=== PATIENT | female | born 1965 | race African-American/Black ===

== ENCOUNTER 2016-11-22 16:36 | Emergency (ER) | payer OTHER ==
[~2016-11-22] VITALS: Ht 165.1 cm; Wt 65.0 kg
[2016-11-22 16:44] VITALS: Ht 165.1 cm; Wt 65.0 kg
[2016-11-22] MEDS ORDERED: LIDOCAINE 1% (MDV) 20 ML INJ SC ONE (18:00)
[2016-11-22 18:40] VITALS: BP 120/70; PULSE 65; RESP 18; TEMP 98.4
--- NOTE | 2016-11-22 20:22 | ERD ---
ER Documentation Chief Complaint Date/Time DATE: 11/22/16 TIME: 20:20 Chief Complaint RT SIDE FACE LAC S/P FALL IN BATH TUB , NO K/O HPI This patient is a 51-year-old female presenting to the emergency department for laceration to her face underneath her right eye. This happened at 3:30 PM today. The patient states she was getting out of her bath when she slipped on her knees causing her face to drop approximately 1 foot into the metal faucet. The patient denies loss of consciousness, dizziness, headache, vomiting, or other injuries or symptoms currently. The patient's tetanus shot is up-to-date. ROS All systems reviewed and are negative except as per history of present illness. Allergies Allergies: Coded Allergies: No Known Allergy (Unverified , 11/22/16) PMhx/Soc Medical and Surgical Hx: pt denies Medical Hx History of Surgery: Yes (appendix) Hx Alcohol Use: No Hx Substance Use: No Hx Tobacco Use: No Smoking Status: Never smoker Physical Exam Vitals Vital Signs Date Time Temp Pulse Resp B/P Pulse Ox O2 Delivery O2 Flow Rate FiO2 11/22/16 18:40 98.4 65 18 120/70 100 Room Air 11/22/16 16:44 98.4 68 18 124/63 98 Physical Exam Const: Well-appearing, nontoxic female in no acute distress. Head: There is a 1 cm laceration just inferior to the right eye without active bleeding or sign of foreign body. Eyes: Normal Conjunctiva ENT: Normal External Ears, Nose and Mouth. Neck: Full range of motion..~ No meningismus. Resp: Clear to auscultation bilaterally Cardio: Regular rate and rhythm, no murmurs Abd: Soft, non tender, non distended. Normal bowel sounds Skin: No petechiae or rashes Back: No midline or flank tenderness Ext: No cyanosis, or edema Neur: Awake and alert Psych: Normal Mood and Affect Results 24 hrs Current Medications Medications (Trade) Dose Ordered Sig/Mio Route PRN Reason Start Time Stop Time Status Last Admin Dose Admin Lidocaine (Xylocaine 1% (Mdv) 20 ml) 20 ml ONCE ONCE SC 11/22/16 18:00 11/22/16 18:01 DC Procedures/MDM Laceration Repair by me: Anesthesia: 1% lidocaine locally 51-year-old female presents for a laceration just inferior to the right eye. Location: Inferior to the right eye Tendon/Joint/Nerves: No injury Foreign body: None detected after copious irrigation and exploration Technique: 2 Simple Interrupted Sutures Complexity: No subcutaneous sutures/mucosal repair/ edge excision Post Closure Length: 1 cm Patient's bleeding was easily controlled in the department and there is no indication of anemia. No evidence of compartment syndrome, neurologic injury, vascular injury, open joint, tendon laceration, or foreign body. Patient is appropriate for outpatient follow up. 48 hour wound check. Scar minimization instructions given. Departure Diagnosis: Primary Impression: Laceration Condition: Fair Patient Instructions: Laceration, Face (Suture Or Tape) Referrals: [facility] YOU HAVE RECEIVED A MEDICAL SCREENING EXAM AND THE RESULTS INDICATE THAT YOU DO NOT HAVE A CONDITION THAT REQUIRES URGENT TREATMENT IN THE EMERGENCY DEPARTMENT. FURTHER EVALUATION AND TREATMENT OF YOUR CONDITION CAN WAIT UNTIL YOU ARE SEEN IN YOUR DOCTORS OFFICE WITHIN THE NEXT 1-2 DAYS. IT IS YOUR RESPONSIBILITY TO MAKE AN APPOINTMENT FOR FOLOW-UP CARE. IF YOU HAVE A PRIMARY DOCTOR --you should call your primary doctor and schedule an appointment IF YOU DO NOT HAVE A PRIMARY DOCTOR YOU CAN CALL OUR PHYSICIAN REFERRAL HOTLINE AT IF YOU CAN NOT AFFORD TO SEE A PHYSICIAN YOU CAN CHOSE FROM THE FOLLOWING [facility] [address] [facility]. [facility] [address] [facility] [address] [facility]. [facility] [address] [facility]. [facility] [address] [facility] [facility]. [address] Additional Instructions: Return in 48 hours for wound recheck. Return in 5-7 days for suture removal. Follow up with your PCP within the next 1-3 days for a repeat evaluation and a possible referral to a specialist, if required. Return the the emergency department immediately if symptoms worsen or change. If you have any questions regarding medications, ask your pharmacist or us before you leave. If any adverse reactions, occur while taking your medications, discontinue the treatment and return to the emergency department immediately. If any new or worsening symptoms, uncontrolled fevers, or other unexplained symptoms occur, return to the emergency department immediately. Take your medications as directed, and complete the entire course of treatment. LEOLA MCINTYRE PA-C November 22, 2016 20:22
== END 2016-11-22 18:36 | disposition home or self-care (01) ==
LOC: FTE 16:36
DX: S01.111A Laceration without foreign body of right eyelid and periocular area, initial encounter (principal); W18.2XXA Fall in (into) shower or empty bathtub, initial encounter; Y92.9 Unspecified place or not applicable
CPT/HCPCS: 12011; Z7502; Z7610

== ENCOUNTER 2016-11-24 08:01 | Emergency (ER) | payer OTHER ==
[~2016-11-24] VITALS: Ht 162.6 cm; Wt 66.0 kg
[2016-11-24 08:07] VITALS: Ht 162.6 cm; Wt 66.0 kg
--- NOTE | 2016-11-24 08:46 | ERD ---
ER Documentation Chief Complaint Date/Time DATE: 11/24/16 TIME: 08:36 Chief Complaint wound recheck on right side of face HPI Patient is a 51-year-old female with no past medical history who presents to the ED with a laceration wound check under her right eye. She states that she fell in the bathtub 2 days ago. Denies passing out or losing consciousness. Denies fever or chills. Denies headache or dizziness. Denies vomiting. Patient has been using Neosporin without difficulty. She has no complaints today. ROS All systems reviewed and are negative except as per history of present illness. Allergies Allergies: Coded Allergies: No Known Allergy (Unverified , 11/22/16) PMhx/Soc History of Surgery: Yes (appendix) Anesthesia Reaction: No Hx Neurological Disorder: No Hx Respiratory Disorders: No Hx Cardiac Disorders: No Hx Psychiatric Problems: No Hx Miscellaneous Medical Probl: No Hx Alcohol Use: No Hx Substance Use: No Hx Tobacco Use: No FmHx Family History: No coronary disease, No diabetes, No other Physical Exam Vitals Vital Signs Date Time Temp Pulse Resp B/P Pulse Ox O2 Delivery O2 Flow Rate FiO2 11/24/16 08:07 98.1 88 18 112/67 97 Physical Exam GENERAL: Well-developed, well-nourished female. Appears in no acute distress. HEAD: Normocephalic, atraumatic. EYES: Pupils are equally reactive bilaterally. EOMs grossly intact. No conjunctival erythema. 2 sutures underneath the right eye. No drainage no erythema or swelling. Slight ecchymosis. No deformities. ENT: Moist mucous membranes. No uvula deviation. No kissing tonsils. No exudates. NECK: Supple. No lymphadenopathy or thyromegaly. No meningismus. negative kernig. negative brudinski. LUNG: Clear to auscultation bilaterally. No rhonchi, wheezing, rales or coarse breath sounds. HEART: Regular rate and rhythm. No murmurs, rubs or gallops. Extremities: Equal pulses bilaterally. No peripheral clubbing, cyanosis or edema. No unilateral leg swelling. NEUROLOGIC: Alert and oriented. Moving all four extremities. 5/5 strength in all extremities. Normal speech. Steady gait. Cranial nerves II through XII intact. SKIN: Normal color. Warm and dry. No rashes or lesions. Capillary refill < 2 seconds Procedures/MDM ER COURSE: I kept the patient and/or family informed of laboratory and diagnostic imaging results throughout the emergency room course. MEDICAL DECISION MAKING: This is a 51-year-old female who presents with a wound check on a laceration underneath her right eye 2 days ago. Vital signs were reviewed. Patient is afebrile. Patient is not hypoxic. Patient is not toxic or ill-appearing. Wound shows no evidence of infection, foreign body, neurologic injury, vascular injury , open joint or tendon laceration. Patient appropriate for outpatient follow up. Low suspicion for necrotizing fasciitis, SJS, toxic epidermal necrolysis, Kawasaki, erythema multiforme, gangrene, scarlet fever, meningococcemia, sepsis, anaphylaxis, sepsis, deep space infection, or foreign body. DISCHARGE: At this time, patient is stable for discharge and outpatient management with no new complaints during the ER course. Patient was sent home with instructions to return in 5 days for removal of sutures. Patient will be discharged home with instructions to recheck for new or worsening symptoms such as fever, nausea, weakness, LOC and to follow up with primary care in the next 1-2 days. Patient was advised to return to the ER for any new or worsening symptoms. Plan was discussed and patient and/or family understands and agrees. Home instructions were given. Departure Diagnosis: Primary Impression: Encounter for wound re-check Condition: Stable Patient Instructions: Wound Check, Lac F/U (No Infection) Additional Instructions: Call your primary care doctor TOMORROW for an appointment during the next 1-2 days.See the doctor sooner or return here if your condition worsens before your appointment time. BOB CHISHOLM PA-C Nov 24, 2016 08:40
== END 2016-11-24 09:02 | disposition home or self-care (01) ==
LOC: FTE 08:01
DX: Z48.01 Encounter for change or removal of surgical wound dressing (principal)
CPT/HCPCS: 99281

== ENCOUNTER 2016-11-28 10:50 | Emergency (ER) | payer OTHER ==
[~2016-11-28] VITALS: Ht 165.1 cm; Wt 66.0 kg
[2016-11-28 10:52] VITALS: Ht 165.1 cm; Wt 66.0 kg
[2016-11-28] MEDS ORDERED: [UNRECOGNIZED DRUG - CODE] TP (11:09)
--- NOTE | 2016-12-01 21:52 | ERA ---
ER Documentation Chief Complaint Date/Time DATE: 12/01/16 TIME: 21:52 Chief Complaint SUTURE REMOVED FROM UNDER RIGHT EYE HPI This is a 51-year-old female who presents for suture removal. Patient had 2 sutures placed on her cheek on November 22. Patient denies fever, discharge or other signs of infection. Patient has no other complaints at this time. Describes no complications. ROS All systems reviewed and are negative except as per history of present illness. Medications Home Meds Active Scripts Allantoin/Onion/Peg's/Water (Mederma Gel) 50 Gm Gel..gm., 50 GM TP DAILY, #1 BOTTLE Prov:JENN VELAZQUEZ PA-C 11/28/16 Allergies Allergies: Coded Allergies: No Known Allergy (Unverified , 11/22/16) PMhx/Soc Medical and Surgical Hx: pt denies Medical Hx, pt denies Surgical Hx History of Surgery: No Anesthesia Reaction: No Hx Neurological Disorder: No Hx Respiratory Disorders: No Hx Cardiac Disorders: No Hx Psychiatric Problems: No Hx Miscellaneous Medical Probl: No Hx Alcohol Use: No Hx Substance Use: No Hx Tobacco Use: No Smoking Status: Never smoker Physical Exam Vitals Vital Signs Date Time Temp Pulse Resp B/P Pulse Ox O2 Delivery O2 Flow Rate FiO2 11/28/16 10:52 98.4 71 20 103/63 98 Physical Exam Const: Well-appearing well-developed 51-year-old female presenting for suture removal Head: Atraumatic Eyes: Normal Conjunctiva ENT: Normal External Ears, Nose and Mouth. Neck: Full range of motion..~ No meningismus. Resp: Clear to auscultation bilaterally Cardio: Regular rate and rhythm, no murmurs Abd: Soft, non tender, non distended. Normal bowel sounds Skin: 2 stitches approximately 3-5 cm below the right eye overlying the zygomatic arch. No petechiae or rashes Back: No midline or flank tenderness Ext: No cyanosis, or edema Neur: Awake and alert Psych: Normal Mood and Affect Procedures/MDM 51-year-old female presented for suture removal. Patient describes no complications. 2 sutures were removed leaving a 2-3 cm horizontal downsloping laceration on the zygomatic arch approximately 3-5 cm of the lobe of the eye. The wound is well approximated and I have no suspicion for infection or other complications at this time. Patient will be discharged with discharge instructions and return precautions. Departure Diagnosis: Primary Impression: Visit for suture removal Condition: Stable Patient Instructions: Suture Removal, No Complication Additional Instructions: Return to emergency department if wound changes or signs of infection occur. Take medication as directed. JENN VELAZQUEZ PA-C Dec 01, 2016 21:52
== END 2016-11-28 11:39 | disposition home or self-care (01) ==
LOC: FTE 10:50
DX: Z48.02 Encounter for removal of sutures (principal)
CPT/HCPCS: 99281

== ENCOUNTER 2017-04-26 15:48 | Emergency (ER) | payer OTHER ==
[~2017-04-26] VITALS: Wt 66.0 kg
[~2017-04-26 15:48] MED LIST: [UNRECOGNIZED DRUG - CODE] TP
[2017-04-26] MEDS ORDERED: TRIA60LO10 TOP (17:56)
--- NOTE | 2017-04-26 19:48 | ERD ---
ER Documentation Chief Complaint Chief Complaint SKIN BLISTERS/CRACKING ON HANDS, ONSET SEVERAL DAYS HPI This is a 51-year-old female presenting to emergency department with dry hands bilaterally 3 days. 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 Patient states this happens frequently and she usually uses [id number] lotion and symptoms resolved. Now patient states that dry skin is now cracked and bleeding. No loss of sensation, numbness or tingling. No swelling. No erythema, warmth or drainage. No active bleeding. No recent injury or trauma to area. No fevers or chills. ROS All systems reviewed and are negative except as per history of present illness. Medications Home Meds Active Scripts Triamcinolone Acetonide (Triamcinolone Acetonide) 0.025% - 60 Ml Lotion, 1 APPLIC TOP QID, #1 BOTTLE Prov:ZURDO SWEET NP 04/26/17 Allantoin/Onion/Peg's/Water (Mederma Gel) 50 Gm Gel..gm., 50 GM TP DAILY, #1 BOTTLE Prov:JENN VELAZQUEZ PA-C 11/28/16 Allergies Allergies: Coded Allergies: No Known Allergy (Unverified , 11/22/16) PMhx/Soc History of Surgery: No Anesthesia Reaction: No Hx Neurological Disorder: No Hx Respiratory Disorders: No Hx Cardiac Disorders: No Hx Psychiatric Problems: No Hx Miscellaneous Medical Probl: No Hx Alcohol Use: No Hx Substance Use: No Hx Tobacco Use: No Physical Exam Vitals Vital Signs Date Time Temp Pulse Resp B/P Pulse Ox O2 Delivery O2 Flow Rate FiO2 04/26/17 15:57 98.0 89 18 173/81 98 Physical Exam Const: No acute distress, alert Head: Atraumatic Eyes: Normal Conjunctiva Skin: dry, cracked, hardened skin bilateral to dorsal aspect of bilateral hands. Capillary refill less than 3 seconds. Sensation fully intact. Patient can make a fist and hyperextend all digits on bilateral hands. Ext: No cyanosis, or edema Neur: Awake and alert Psych: Normal Mood and Affect Procedures/MDM MDM: This is a 51-year-old female presenting to emerge department for dry, cracking of skin to bilateral hands. 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 There is no erythema, warmth or drainage. There is some dried blood from healing lacerations. No signs or symptoms of infection. Low suspicion for bacterial infection. Patient is appropriate for outpatient management will be given prescription for triamcinolone0.023% lotion. Instructed patient to follow-up with primary care provider in the next week for reassessment and additional management. Return to ED for any high fever, chest pain, difficulty breathing, shortness breath, wheezing, vomiting, diarrhea, abdominal pain or any new or worsening symptoms. Patient verbalizes understanding. All questions answered at discharge. Disclaimer: Inadvertent spelling and grammatical errors are likely due to EHR/ dictation software use and do not reflect on the overall quality of patient care. Also, please note that the electronic time recorded on this note does not necessarily reflect the actual time of the patient encounter. Departure Diagnosis: Primary Impression: Dermatitis Condition: Stable Patient Instructions: Dermatitis, Non-Specific Referrals: [facility] YOU HAVE RECEIVED A MEDICAL SCREENING EXAM AND THE RESULTS INDICATE THAT YOU DO NOT HAVE A CONDITION THAT REQUIRES URGENT TREATMENT IN THE EMERGENCY DEPARTMENT. FURTHER EVALUATION AND TREATMENT OF YOUR CONDITION CAN WAIT UNTIL YOU ARE SEEN IN YOUR DOCTORS OFFICE WITHIN THE NEXT 1-2 DAYS. IT IS YOUR RESPONSIBILITY TO MAKE AN APPOINTMENT FOR FOLOW-UP CARE. IF YOU HAVE A PRIMARY DOCTOR --you should call your primary doctor and schedule an appointment IF YOU DO NOT HAVE A PRIMARY DOCTOR YOU CAN CALL OUR PHYSICIAN REFERRAL HOTLINE AT IF YOU CAN NOT AFFORD TO SEE A PHYSICIAN YOU CAN CHOSE FROM THE FOLLOWING [facility] CLINICS [facility] [address] [facility]. [facility] [address] [facility]. [facility] [address] [facility]. [facility] [address] [facility]. [facility] [address] [facility]. [facility]. [address] [facility]. [facility] YOU HAVE RECEIVED A MEDICAL SCREENING EXAM AND THE RESULTS INDICATE THAT YOU DO NOT HAVE A CONDITION THAT REQUIRES URGENT TREATMENT IN THE EMERGENCY DEPARTMENT. FURTHER EVALUATION AND TREATMENT OF YOUR CONDITION CAN WAIT UNTIL YOU ARE SEEN IN YOUR DOCTORS OFFICE WITHIN THE NEXT 1-2 DAYS. IT IS YOUR RESPONSIBILITY TO MAKE AN APPOINTMENT FOR FOLOW-UP CARE. IF YOU HAVE A PRIMARY DOCTOR --you should call your primary doctor and schedule and appointment IF YOU DO NOT HAVE A PRIMARY DOCTOR YOU CAN CALL OUR PHYSICIAN REFERRAL HOTLINE AT . IF YOU CAN NOT AFFORD TO SEE A PHYSICIAN YOU CAN CHOSE FROM THE FOLLOWING [facility] INSTITUTIONS: [facility] [address] [place] [address] [facility] [address] [place] [address] [facility] [address] [place] [address] Additional Instructions: Call your primary care doctor TOMORROW for an appointment during the next 2-3 days.See the doctor sooner or return here if your condition worsens before your appointment time. Return to ED for any high fever, chest pain, difficulty breathing, shortness breath, wheezing, vomiting, diarrhea, abdominal pain or any new or worsening symptoms. ZURDO SWEET NP Apr 26, 2017 19:48
--- NOTE | 2017-04-26 19:48 | ERD ---
ER Documentation Chief Complaint Chief Complaint SKIN BLISTERS/CRACKING ON HANDS, ONSET SEVERAL DAYS HPI This is a 51-year-old female presenting to emergency department with dry hands bilaterally 3 days. 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 Patient states this happens frequently and she usually uses pewn-[id number] lotion and symptoms resolved. Now patient states that dry skin is now cracked and bleeding. No loss of sensation, numbness or tingling. No swelling. No erythema, warmth or drainage. No active bleeding. No recent injury or trauma to area. No fevers or chills. ROS All systems reviewed and are negative except as per history of present illness. Medications Home Meds Active Scripts Triamcinolone Acetonide (Triamcinolone Acetonide) 0.025% - 60 Ml Lotion, 1 APPLIC TOP QID, #1 BOTTLE Prov:ZURDO SWEET NP 04/26/17 Allantoin/Onion/Peg's/Water (Mederma Gel) 50 Gm Gel..gm., 50 GM TP DAILY, #1 BOTTLE Prov:JENN VELAZQUEZ PA-C 11/28/16 Allergies Allergies: Coded Allergies: No Known Allergy (Unverified , 11/22/16) PMhx/Soc History of Surgery: No Anesthesia Reaction: No Hx Neurological Disorder: No Hx Respiratory Disorders: No Hx Cardiac Disorders: No Hx Psychiatric Problems: No Hx Miscellaneous Medical Probl: No Hx Alcohol Use: No Hx Substance Use: No Hx Tobacco Use: No Physical Exam Vitals Vital Signs Date Time Temp Pulse Resp B/P Pulse Ox O2 Delivery O2 Flow Rate FiO2 04/26/17 15:57 98.0 89 18 173/81 98 Physical Exam Const: No acute distress, alert Head: Atraumatic Eyes: Normal Conjunctiva Skin: dry, cracked, hardened skin bilateral to dorsal aspect of bilateral hands. Capillary refill less than 3 seconds. Sensation fully intact. Patient can make a fist and hyperextend all digits on bilateral hands. Ext: No cyanosis, or edema Neur: Awake and alert Psych: Normal Mood and Affect Procedures/MDM MDM: This is a 51-year-old female presenting to emerge department for dry, cracking of skin to bilateral hands. 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 There is no erythema, warmth or drainage. There is some dried blood from healing lacerations. No signs or symptoms of infection. Low suspicion for bacterial infection. Patient is appropriate for outpatient management will be given prescription for triamcinolone0.023% lotion. Instructed patient to follow-up with primary care provider in the next week for reassessment and additional management. Return to ED for any high fever, chest pain, difficulty breathing, shortness breath, wheezing, vomiting, diarrhea, abdominal pain or any new or worsening symptoms. Patient verbalizes understanding. All questions answered at discharge. Disclaimer: Inadvertent spelling and grammatical errors are likely due to EHR/ dictation software use and do not reflect on the overall quality of patient care. Also, please note that the electronic time recorded on this note does not necessarily reflect the actual time of the patient encounter. Departure Diagnosis: Primary Impression: Dermatitis Condition: Stable Patient Instructions: Dermatitis, Non-Specific Referrals: [facility] YOU HAVE RECEIVED A MEDICAL SCREENING EXAM AND THE RESULTS INDICATE THAT YOU DO NOT HAVE A CONDITION THAT REQUIRES URGENT TREATMENT IN THE EMERGENCY DEPARTMENT. FURTHER EVALUATION AND TREATMENT OF YOUR CONDITION CAN WAIT UNTIL YOU ARE SEEN IN YOUR DOCTORS OFFICE WITHIN THE NEXT 1-2 DAYS. IT IS YOUR RESPONSIBILITY TO MAKE AN APPOINTMENT FOR FOLOW-UP CARE. IF YOU HAVE A PRIMARY DOCTOR --you should call your primary doctor and schedule an appointment IF YOU DO NOT HAVE A PRIMARY DOCTOR YOU CAN CALL OUR PHYSICIAN REFERRAL HOTLINE AT IF YOU CAN NOT AFFORD TO SEE A PHYSICIAN YOU CAN CHOSE FROM THE FOLLOWING [facility] CLINICS [facility] [address] [facility]. [facility] [address] [facility]. [facility] [address] [facility] [address] [facility]. [facility] [address] [facility]. [address] [facility]. [facility] YOU HAVE RECEIVED A MEDICAL SCREENING EXAM AND THE RESULTS INDICATE THAT YOU DO NOT HAVE A CONDITION THAT REQUIRES URGENT TREATMENT IN THE EMERGENCY DEPARTMENT. FURTHER EVALUATION AND TREATMENT OF YOUR CONDITION CAN WAIT UNTIL YOU ARE SEEN IN YOUR DOCTORS OFFICE WITHIN THE NEXT 1-2 DAYS. IT IS YOUR RESPONSIBILITY TO MAKE AN APPOINTMENT FOR FOLOW-UP CARE. IF YOU HAVE A PRIMARY DOCTOR --you should call your primary doctor and schedule and appointment IF YOU DO NOT HAVE A PRIMARY DOCTOR YOU CAN CALL OUR PHYSICIAN REFERRAL HOTLINE AT . IF YOU CAN NOT AFFORD TO SEE A PHYSICIAN YOU CAN CHOSE FROM THE FOLLOWING [facility] INSTITUTIONS: [facility] [address] [place] [address] [facility] [address] [place] [address] [facility] [address] [place] [address] Additional Instructions: Call your primary care doctor TOMORROW for an appointment during the next 2-3 days.See the doctor sooner or return here if your condition worsens before your appointment time. Return to ED for any high fever, chest pain, difficulty breathing, shortness breath, wheezing, vomiting, diarrhea, abdominal pain or any new or worsening symptoms. ZURDO SWEET NP Apr 26, 2017 19:48
--- NOTE | 2017-04-26 19:48 | ERD ---
ER Documentation Chief Complaint Chief Complaint SKIN BLISTERS/CRACKING ON HANDS, ONSET SEVERAL DAYS HPI This is a 51-year-old female presenting to emergency department with dry hands bilaterally 3 days. 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 Patient states this happens frequently and she usually uses [id number] lotion and symptoms resolved. Now patient states that dry skin is now cracked and bleeding. No loss of sensation, numbness or tingling. No swelling. No erythema, warmth or drainage. No active bleeding. No recent injury or trauma to area. No fevers or chills. ROS All systems reviewed and are negative except as per history of present illness. Medications Home Meds Active Scripts Triamcinolone Acetonide (Triamcinolone Acetonide) 0.025% - 60 Ml Lotion, 1 APPLIC TOP QID, #1 BOTTLE Prov:ZURDO SWEET NP 04/26/17 Allantoin/Onion/Peg's/Water (Mederma Gel) 50 Gm Gel..gm., 50 GM TP DAILY, #1 BOTTLE Prov:JENN VELAZQUEZ PA-C 11/28/16 Allergies Allergies: Coded Allergies: No Known Allergy (Unverified , 11/22/16) PMhx/Soc History of Surgery: No Anesthesia Reaction: No Hx Neurological Disorder: No Hx Respiratory Disorders: No Hx Cardiac Disorders: No Hx Psychiatric Problems: No Hx Miscellaneous Medical Probl: No Hx Alcohol Use: No Hx Substance Use: No Hx Tobacco Use: No Physical Exam Vitals Vital Signs Date Time Temp Pulse Resp B/P Pulse Ox O2 Delivery O2 Flow Rate FiO2 04/26/17 15:57 98.0 89 18 173/81 98 Physical Exam Const: No acute distress, alert Head: Atraumatic Eyes: Normal Conjunctiva Skin: dry, cracked, hardened skin bilateral to dorsal aspect of bilateral hands. Capillary refill less than 3 seconds. Sensation fully intact. Patient can make a fist and hyperextend all digits on bilateral hands. Ext: No cyanosis, or edema Neur: Awake and alert Psych: Normal Mood and Affect Procedures/MDM MDM: This is a 51-year-old female presenting to emerge department for dry, cracking of skin to bilateral hands. 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 There is no erythema, warmth or drainage. There is some dried blood from healing lacerations. No signs or symptoms of infection. Low suspicion for bacterial infection. Patient is appropriate for outpatient management will be given prescription for triamcinolone0.023% lotion. Instructed patient to follow-up with primary care provider in the next week for reassessment and additional management. Return to ED for any high fever, chest pain, difficulty breathing, shortness breath, wheezing, vomiting, diarrhea, abdominal pain or any new or worsening symptoms. Patient verbalizes understanding. All questions answered at discharge. Disclaimer: Inadvertent spelling and grammatical errors are likely due to EHR/ dictation software use and do not reflect on the overall quality of patient care. Also, please note that the electronic time recorded on this note does not necessarily reflect the actual time of the patient encounter. Departure Diagnosis: Primary Impression: Dermatitis Condition: Stable Patient Instructions: Dermatitis, Non-Specific Referrals: [facility] YOU HAVE RECEIVED A MEDICAL SCREENING EXAM AND THE RESULTS INDICATE THAT YOU DO NOT HAVE A CONDITION THAT REQUIRES URGENT TREATMENT IN THE EMERGENCY DEPARTMENT. FURTHER EVALUATION AND TREATMENT OF YOUR CONDITION CAN WAIT UNTIL YOU ARE SEEN IN YOUR DOCTORS OFFICE WITHIN THE NEXT 1-2 DAYS. IT IS YOUR RESPONSIBILITY TO MAKE AN APPOINTMENT FOR FOLOW-UP CARE. IF YOU HAVE A PRIMARY DOCTOR --you should call your primary doctor and schedule an appointment IF YOU DO NOT HAVE A PRIMARY DOCTOR YOU CAN CALL OUR PHYSICIAN REFERRAL HOTLINE AT IF YOU CAN NOT AFFORD TO SEE A PHYSICIAN YOU CAN CHOSE FROM THE FOLLOWING [facility] [address] [facility]. [facility] [address] [facility] [email or web address] [address] [facility]. [facility] [address] [facility]. [facility] [address] [facility]. [facility]. [address] [facility]. [facility] YOU HAVE RECEIVED A MEDICAL SCREENING EXAM AND THE RESULTS INDICATE THAT YOU DO NOT HAVE A CONDITION THAT REQUIRES URGENT TREATMENT IN THE EMERGENCY DEPARTMENT. FURTHER EVALUATION AND TREATMENT OF YOUR CONDITION CAN WAIT UNTIL YOU ARE SEEN IN YOUR DOCTORS OFFICE WITHIN THE NEXT 1-2 DAYS. IT IS YOUR RESPONSIBILITY TO MAKE AN APPOINTMENT FOR FOLOW-UP CARE. IF YOU HAVE A PRIMARY DOCTOR --you should call your primary doctor and schedule and appointment IF YOU DO NOT HAVE A PRIMARY DOCTOR YOU CAN CALL OUR PHYSICIAN REFERRAL HOTLINE AT . IF YOU CAN NOT AFFORD TO SEE A PHYSICIAN YOU CAN CHOSE FROM THE FOLLOWING [facility]: [facility] [address] [place] [address] [facility] [address] [place] [address] [facility] [address] [place] [address] Additional Instructions: Call your primary care doctor TOMORROW for an appointment during the next 2-3 days.See the doctor sooner or return here if your condition worsens before your appointment time. Return to ED for any high fever, chest pain, difficulty breathing, shortness breath, wheezing, vomiting, diarrhea, abdominal pain or any new or worsening symptoms. ZURDO SWEET NP Apr 26, 2017 19:48
== END 2017-04-26 18:18 | disposition home or self-care (01) ==
LOC: FTE 15:48
DX: L30.9 Dermatitis, unspecified (principal)
CPT/HCPCS: 99283